=== PATIENT | male | born 1985 | race Caucasian/White ===

== ENCOUNTER 2017-02-27 19:26 | Emergency (ER) | payer MEDICAID ==
[~2017-02-27] VITALS: Ht 167.6 cm; Wt 56.5 kg
[~2017-02-27 19:26] MED LIST: ALBU8.5H3 INH; IBUP-1542 PO; MAGN296S40 PO; ONDA4TAB35 PO; POLY17PO6 PO
[2017-02-27 19:33] VITALS: Ht 167.6 cm; Wt 56.5 kg
--- NOTE | 2017-02-27 22:30 | RADRPT ---
PROCEDURE: XR Foot. CLINICAL INDICATION: Pain. TECHNIQUE: Three views of the right foot. COMPARISON: None available. FINDINGS: No fracture or dislocation is identified. The joint spaces are preserved. There is no significant soft tissue swelling. IMPRESSION: 1. No fracture or dislocation of the right foot. RPTAT: HTAR .Jonathon Bird MD, Date Time Electronically viewed and signed by .Jonathon Bird MD, on 02/27/2017 22:29 .R/
--- NOTE | 2017-02-27 22:30 | RADRPT ---
PROCEDURE: XR Ankle. CLINICAL INDICATION: Right ankle pain. TECHNIQUE: Three views of the right ankle. COMPARISON: None available. FINDINGS: No fracture or dislocation is identified. The ankle mortise appears intact in this nonstressed stud y. The joint spaces are preserved. There is mild soft tissue swelling around the ankle. IMPRESSION: 1. No fracture or dislocation of the right ankle. RPTAT: HTAR .Jonathon Bird MD, MD Date Time Electronically viewed and signed by .Jonathon Bird MD, on 02/27/2017 22:30 .R/
[2017-02-27] MEDS ORDERED: IBUP-1542 PO (22:41)
[2017-02-27] MEDS ORDERED: HYDR-906 PO (22:42)
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
[2017-02-27 22:57] VITALS: BP 141/67; PULSE 76; RESP 18; TEMP 98.5
== END 2017-02-27 23:00 | disposition home or self-care (01) ==
LOC: FTE 19:26
DX: M25.571 Pain in right ankle and joints of right foot (principal)
CPT/HCPCS: 73610; 73630; Z7502

== ENCOUNTER 2017-06-26 22:09 | Emergency (ER) | payer MEDICAID ==
[~2017-06-26] VITALS: Ht 170.2 cm; Wt 55.5 kg
[~2017-06-26 22:09] MED LIST changes: +HYDR-906 PO
[2017-06-26 22:28] VITALS: Ht 170.2 cm; Wt 55.5 kg
[2017-06-27] MEDS ORDERED: ASPIRIN 325 MG TAB PO ONE (02:30)
[2017-06-27 02:52] LABS: BASOPHILS % 0.5 % (0.0-2.0); EOSINOPHILS # 0.2 10^3/ul (0.0-0.5); EOSINOPHILS % 2.2 % (0.0-7.0); HEMATOCRIT 41.3 % (42.0-52.0); HEMOGLOBIN 14.1 g/dl (14.0-18.0); LYMPHOCYTES # 2.3 10^3/ul (0.8-2.9); LYMPHOCYTES % 26.6 % (15.0-51.0); MEAN CORPUSCULAR HEMOGLOBIN 31.8 pg (29.0-33.0); MEAN CORPUSCULAR HGB CONC 34.1 g/dl (32.0-37.0); MEAN CORPUSCULAR VOLUME 93.2 fl (82.0-101.0); MEAN PLATELET VOLUME 10.7 fl (7.4-10.4); MONOCYTE # 0.7 10^3/ul (0.3-0.9); MONOCYTES % 7.7 % (0.0-11.0); NEUTROPHIL # 5.5 10^3/ul (1.6-7.5); NEUTROPHILS % 62.7 % (39.0-77.0); PLATELET COUNT 264 10^3/UL (140-415); RED BLOOD COUNT 4.43 10^6/ul (4.70-6.10); RED CELL DISTRIBUTION WIDTH 11.8 % (11.5-14.5); WHITE BLOOD COUNT 8.8 10^3/ul (4.8-10.8)
--- NOTE | 2017-06-27 02:56 | RADRPT ---
PROCEDURE: CHEST CLINICAL INDICATION: Chest x-ray November 03, 2015. TECHNIQUE: AP upright view of the chest was obtained portably on two radiographs. The images were reviewed on a PACS workstation. COMPARISON: None. FINDINGS: The cardiomediastinal silhouette has a normal appearance. There is no evidence for an infiltrate. There is no evidence for congestive heart failure. There is no evidence for pneumothorax. The osseou s structures are intact. IMPRESSION: No evidence for active cardiopulmonary disease. .Abdulkadir Coates MD, MD Date Time Electronically viewed and signed by .Abdulkadir Coates MD, MD on 06/27/2017 02:56 .M/
[2017-06-27] MEDS ORDERED: IBUP400T22 PO (03:05)
[2017-06-27 03:16] LABS: ALANINE AMINOTRANSFERASE 31 IU/L (13-69); ALBUMIN 4.5 g/dl (3.3-4.9); ALKALINE PHOSPHATASE 61 IU/L (42-121); ANION GAP 13 (8-16); ASPARTATE AMINO TRANSFERASE 17 IU/L (15-46); BILIRUBIN,INDIRECT 0.2 mg/dl (0-1.1); BILIRUBIN,TOTAL 0.2 mg/dl (0.2-1.3); BLOOD UREA NITROGEN 14 mg/dl (7-20); CALCIUM 9.6 mg/dl (8.4-10.2); CARBON DIOXIDE 30 mmol/L (21-31); CHLORIDE 101 mmol/L (97-110); CREATININE 1.08 mg/dl (0.61-1.24); GLUCOSE 100 mg/dl (70-220); POTASSIUM 4.2 mmol/L (3.5-5.1); SODIUM 140 mmol/L (135-144); TOTAL PROTEIN 7.5 g/dl (6.1-8.1)
[2017-06-27 03:30] LABS: TROPONIN-I < 0.012 ng/ml (0.00-0.12)
[2017-06-27 03:59] VITALS: BP 127/89; PULSE 88; RESP 17; TEMP 97.8
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
== END 2017-06-27 04:00 | disposition home or self-care (01) ==
LOC: FTE 22:09
DX: R07.9 Chest pain, unspecified (principal); F17.210 Nicotine dependence, cigarettes, uncomplicated
CPT/HCPCS: 71010; 80053; 84484; 85025; 93005; Z7502; Z7610

== ENCOUNTER 2017-11-26 19:07 | Emergency (ER) | END 2017-11-27 02:15 | disposition home or self-care (01) ==

== ENCOUNTER 2018-05-18 11:23 | Emergency (ER) | END 2018-05-18 15:24 | disposition home or self-care (01) ==